=== PATIENT | female | born 1985 | race Caucasian/White ===

== ENCOUNTER 2023-02-05 02:06 | Day surgery (SDC) | payer BC, SELFPAY ==
[2023-01-14 15:52] VITALS: BMI 27.3
--- NOTE | 2023-01-14 15:57 | PC.NURSE ---
Addendum entered by Radha Gonzalez RN 01/29/23 14:36: Spoke with patient, no new medical conditions or medications from time of first pre-op interview. Instructed patient on new arrival time of 1200 on 02/05/23 with a planned procedure time of 1400. Original Note: Report to the Outpatient Waiting Room, entrance under the green pavilion located off [facility], at time 1100 on date 01/22/23. Planned Procedure Time: 1300. Time changes happen often and if your time is changed the preop area will call you the afternoon before. - You and your visitor will be asked to self-screen and do not enter if you have any COVID symptoms. - A mask is optional within the hospital at this time. Patients may have clear liquids (water, carbonated beverages, clear teas, apple juice) until 3 hours prior to surgery with a maximum of 20 ounces. - No food from midnight until time of surgery Take the following medications with a SIP of water the morning of surgery: DULOXETINE, INHALERS DO NOT STOP ANY OF YOUR OTHER PRESCRIPTION MEDICATIONS PRIOR TO SURGERY ?EXCEPT THE FOLLOWING Medications to discontinue per physician: VITAMINS Date to take last dose: 01/18/23 Please no make-up, nail korean, hairspray, perfume, deodorant, or body powder the day of surgery. No jewelry (including any body piercings) or valuables the day of surgery, leave them at home. Please take a shower or bath the night before, or the morning of, surgery with an antibacterial soap. Wear comfortable, loose fitting clothing. - Jewelry must be removed prior to entering the operating room. Rings and piercings that are not removed may be cut off. - The hospital will not accept responsibility for valuables. - Please leave all valuables, including medications, at home the day of surgery. If you are going home after surgery, a licensed pile driver engineer must drive you home. - NO public transportation without another adult if you receive anesthesia. - We recommend that an adult stay with you for 24 hours following discharge. - We also recommend that you do not drive, make important decision, drink alcoholic beverages, or take any drugs that were not prescribed by your health care provider for at least 24 hours after your discharge time. Follow any additional instructions given to you from your surgeon. If you or anyone in your household have experienced Covid symptoms in the past week, please notify your surgeon or the nurse liaison at the phone number below for possible testing. Telephone instructions given to PT - JULIO C MITCHELL and asked if any additional questions and then verbalized understanding. Patient advised to call surgeon office or pre surgery nurse liaison [phone] if any additional questions.
--- NOTE | 2023-01-21 14:30 | WPDANESEPPF ---
Anes - Initial Pre Proc Eval Procedure: Operation Date: 01/22/23 13:00 Proposed Procedures p Hysteroscopy, Dilation and Curettage, Roberta Endometrial Ablation - Rolan Aaron MD Date/Time: 01/21/23 14:30 Surgeon: Rolan Aaron MD Pre Op Diagnosis: irreg bleeding Patient Data Age: 37 Gender: F Height: 1.7 m Weight: 79.4 kg Allergies Allergy/AdvReac Type Severity Reaction Status Date / Time Penicillins Allergy Intermediate HIVES Verified 01/14/23 15:49 Home Medications Medication Instructions Recorded Confirmed Type albuterol sulfate 90 mcg/actuation 2 puff inhalation QID PRN 01/14/23 01/14/23 History aerosol inhaler Bronchospasm duloxetine 60 mg capsule,delayed 60 mg PO DAILY 01/14/23 01/14/23 History release ergocalciferol (vitamin D2) 1,250 1,250 mcg PO WEEKLY 01/14/23 01/14/23 History mcg (50,000 unit) capsule (Vitamin D2) famotidine 20 mg tablet 20 mg PO MONTHLY 01/14/23 01/14/23 History fluticasone furoate 100 1 inh inhalation DAILY 01/14/23 01/14/23 History mcg-vilanterol 25 mcg/dose inhalation powder (Breo Ellipta) montelukast 10 mg tablet 10 mg PO DAILY 01/14/23 01/14/23 History omeprazole 20 mg tablet,delayed 20 mg PO DAILY 01/14/23 01/14/23 History release Results Review: All pre-operative results and documents have been reviewed as part of the pre-operative evaluation. [facility] Past Medical History Medical History (Updated 01/21/23 @ 14:32 by Mckinley Hansen MD) Asthma Chronic GERD Fibromyalgia Overweight (BMI 25.0-29.9) Social History Social History Smoking status: Never smoker Alcohol intake: current Alcohol use details: 2/MONTH Substance use: never Substance use type: does not use Living arrangements: with family Spiritual care concerns: No Anes - Eval Final PreProcedure Day of Procedure 01/21/23 14:30 Patient weight: overweight Heart: regular rate and rhythm Lungs: clear to auscultation and normal air movement Airway: Mallampati scale class II Neurological: alert and oriented Last oral intake: >/= 8 hours ASA classification: II Emergent: no Anesthetic plan: proceed Anesthesia type and monitoring: general GIVS and LMA Results Review: All pre-operative results and documents have been reviewed as part of the pre-operative evaluation. Informed Consent: The patient's anesthetic plan and its attendant risks and benefits were discussed with the patient/family/POA. Questions were solicited and answers provided to the satisfaction of the patient/family/POA.
--- NOTE | 2023-02-05 09:29 | WPDANESEPPF ---
Anes - Initial Pre Proc Eval Procedure: Operation Date: 02/05/23 14:00 Proposed Procedures p Hysteroscopy, Dilation and Curettage, Roberta Endometrial Ablation - Rolan Aaron MD Date/Time: 02/05/23 09:29 Surgeon: Rolan Aaron MD Pre Op Diagnosis: irreg bleeding Patient Data Age: 37 Gender: F Height: 1.7 m Weight: 79.4 kg Allergies Allergy/AdvReac Type Severity Reaction Status Date / Time Penicillins Allergy Intermediate HIVES Verified 02/05/23 11:58 Home Medications Medication Instructions Recorded Confirmed Type albuterol sulfate 90 mcg/actuation 2 puff inhalation QID PRN 01/14/23 01/14/23 History aerosol inhaler Bronchospasm duloxetine 60 mg capsule,delayed 60 mg PO DAILY 01/14/23 01/14/23 History release ergocalciferol (vitamin D2) 1,250 1,250 mcg PO WEEKLY 01/14/23 01/14/23 History mcg (50,000 unit) capsule (Vitamin D2) famotidine 20 mg tablet 20 mg PO MONTHLY 01/14/23 01/14/23 History fluticasone furoate 100 1 inh inhalation DAILY 01/14/23 01/14/23 History mcg-vilanterol 25 mcg/dose inhalation powder (Breo Ellipta) montelukast 10 mg tablet 10 mg PO DAILY 01/14/23 01/14/23 History omeprazole 20 mg tablet,delayed 20 mg PO DAILY 01/14/23 01/14/23 History release Patient hx anesthesia problems: none Family hx anesthesia problems: none Results Review: All pre-operative results and documents have been reviewed as part of the pre-operative evaluation. [facility] Past Medical History Medical History (Updated 01/21/23 @ 14:32 by Mckinley Hansen MD) Asthma Chronic GERD Fibromyalgia Overweight (BMI 25.0-29.9) Social History Social History Smoking status: Never smoker Alcohol intake: current Alcohol use details: 2/MONTH Substance use: never Substance use type: does not use Living arrangements: with family Spiritual care concerns: No Anes - Eval Final PreProcedure Day of Procedure 02/05/23 09:29 Patient weight: overweight Heart: regular rate and rhythm Lungs: clear to auscultation Airway: Mallampati scale class II Neurological: alert and oriented Last oral intake: >/= 8 hours ASA classification: II Emergent: no Anesthetic plan: proceed Anesthesia type and monitoring: general GIVS and standard monitoring Results Review: All pre-operative results and documents have been reviewed as part of the pre-operative evaluation. Informed Consent: The patient's anesthetic plan and its attendant risks and benefits were discussed with the patient/family/POA. Questions were solicited and answers provided to the satisfaction of the patient/family/POA.
[2023-02-05] MEDS: ACETAMINOPHEN 500 MG TABLET 1000 MG PO (12:03)
[2023-02-05] MEDS: LACTATED RINGERS 1,000 ML 30 ML IV CONT ×3 (12:27→14:55)
[2023-02-05 12:32] VITALS: BP 111/63; PULSE 78; RESP 16; TEMP 37.3; O2SAT 99
--- NOTE | 2023-02-05 13:17 | PM.IMHP ---
H&P: HPI History of Present Illness Date/Time: 02/05/23 13:17 Chief Complaint: Heavy bleeding Narrative: 37 y/o with heavy menses, desiring surgical management. Her has had a vasectomy. Review of Systems Review of Systems: All systems reviewed & are unremarkable except as noted in HPI and below PMFSH Past Medical History Medical History (Updated 02/05/23 @ 13:18 by Rolan Aaron MD) Asthma Chronic GERD Fibromyalgia Overweight (BMI 25.0-29.9) Social History Social History Smoking status: Never smoker Alcohol intake: current Alcohol use details: 2/MONTH Substance use: never Substance use type: does not use Living arrangements: with family Spiritual care concerns: No Meds Home Medications and Allergies Home Medications Medication Instructions Recorded Confirmed Type albuterol sulfate 90 mcg/actuation 2 puff inhalation QID PRN 01/14/23 01/14/23 History aerosol inhaler Bronchospasm duloxetine 60 mg capsule,delayed 60 mg PO DAILY 01/14/23 01/14/23 History release ergocalciferol (vitamin D2) 1,250 1,250 mcg PO WEEKLY 01/14/23 01/14/23 History mcg (50,000 unit) capsule (Vitamin D2) famotidine 20 mg tablet 20 mg PO MONTHLY 01/14/23 01/14/23 History fluticasone furoate 100 1 inh inhalation DAILY 01/14/23 01/14/23 History mcg-vilanterol 25 mcg/dose inhalation powder (Breo Ellipta) montelukast 10 mg tablet 10 mg PO DAILY 01/14/23 01/14/23 History omeprazole 20 mg tablet,delayed 20 mg PO DAILY 01/14/23 01/14/23 History release Allergies Allergy/AdvReac Type Severity Reaction Status Date / Time Penicillins Allergy Intermediate HIVES Verified 02/05/23 11:58 Vital Signs Vital Signs - 24 hr 02/05/23 12:32 Temperature 37.3 C Pulse Rate 78 Respiratory Rate 16 Blood Pressure 111/63 Pulse Oximetry 99 Oxygen Delivery Room Air Exam Const: Orientation/consciousness: patient oriented x3 Other: Well-developed, well-nourished female in no acute distress. Neck: Thyroid: thyroid normal Lymphatic: no lymphadenopathy noted (in neck, axilla or inguinal nodes) Resp: Effort & Inspection: normal respiratory effort Auscultation: clear to auscultation bilaterally Cardio: Rate: regular rate Rhythm: regular rhythm Heart sounds: S1 normal heart sound present and S2 normal heart sound present GI: Other: ABD: Soft, nontender, nondistended. No guarding or rebound tenderness. No hepatosplenomegaly. : General: Yes no CVA tenderness Other: External genitalia: normal female hair distribution, without lesion. Urethral meatus: no lesion, non prolapsed. Bladder: no mass, nontender Vagina: well-estrogenized, without lesion or discharge. No cystocele or rectocele. Cervix: no lesion or discharge. Uterus: small, anteverted, freely mobile, nontender Adnexa: no mass or tenderness. Anus/perineum: no lesions, nontender Back/Spine/Pelvis: Back: no CVA tenderness Skin: General skin exam: normal color and no rashes or lesions noted Neuro: General: patient oriented x3 Extrem: Other: Extremities: nontender with no edema Psych: Mental Status: mental status grossly normal Affect: normal affect Assessment and Plan Assessment and plan (1) Menometrorrhagia: Code(s): N92.1 - Excessive and frequent menstruation with irregular cycle Status: Acute Assessment and Plan: A: Menometrorrhagia. P: We have reviewed medical as well as surgical approaches, and she prefers the latter. She does not desire any future childbearing. I have offered her a hysteroscopy, dilation and sharp curettage, and endometrial ablation. Call or return if temperature above 100.4? F, increased abdominal pain, increased vaginal bleeding or any new problems.
--- NOTE | 2023-02-05 13:19 | WPDHPUPDATE1 ---
History and Physical Update Update Date/Time: 02/05/23 13:19 History and Physical has been reviewed, including an updated exam of the patient. There are NO changes in the patient's condition. Risks, benefits, and alternatives have been discussed and questions answered. Patient agrees to proceed with procedure.
[2023-02-05] MEDS: LIDOCAINE 1% BUFFERED WITH 8.4% SODIUM BICARB 1 ML SYRINGE 10 ML INFILTRATE (14:08)
[2023-02-05] MEDS: KETOROLAC 30 MG/ML VIAL (*BKC) IV PUSH (14:14)
--- NOTE | 2023-02-05 14:20 | W.PM.PROC2 ---
Procedure Note - Detailed Date of Procedure 02/05/23 Pre-op Diagnosis Menometrorrhagia Post-op Diagnosis Same Procedure Performed Hysteroscopy Dilation and sharp curettage Endometrial curettings Surgeon Rolan Aaron MD Anesthesia MAC and Local (1% lidocaine) Findings Unremarkable endometrial cavity. Both tubal ostia seen. Description of Procedure The patient was taken to the operating room where she was prepared and draped in the usual sterile fashion in the dorsal lithotomy position. The bladder was drained with a red rubber catheter. A sterile speculum was placed into the vagina. The anterior lip of the cervix was grasped with single-tooth tenaculum. Ten mL of 1% lidocaine was administered in a paracervical block. The cervix was then gently dilated using Hegar dilators until an 8 mm dilator could be passed. Hysteroscopy was performed using sterile saline as a distention medium. Findings are as noted above. Sharp curettage was then performed, and endometrial curettings were collected on a Telfa pad and passed off to be sent to pathology. Finally, the the Roberta device was advanced and endometrial ablation commenced without difficulty. The device was withdrawn and a second look was taken using the hysteroscope. Excellent coverage of the endometrial cavity was noted. The tenaculum was removed. Hemostasis was excellent. Sponge, lap, needle and instrument counts were correct. The patient was awakened and taken to the recovery room in stable condition. I was present and scrubbed through the entire procedure. Estimated Blood Loss 5 Drains No Packing No Pathology Yes (Endometrial curettings) Complications None Condition Stable Disposition PACU
[2023-02-05 14:21] VITALS: BP 100/57; PULSE 75; RESP 16; O2SAT 99
[2023-02-05 14:30] VITALS: BP 108/70; PULSE 67; RESP 15; O2SAT 100
[2023-02-05 14:45] VITALS: BP 121/71; PULSE 67; RESP 13; O2SAT 100
[2023-02-05] MEDS: oxyCODONE HCL (*CRX) 5 MG TAB IR PO (15:02)
[2023-02-05 15:11] VITALS: BP 126/68; PULSE 62; RESP 16; O2SAT 100
== END 2023-02-05 15:18 | disposition home or self-care (01) ==
PROVIDERS: Visit Provider Obstetrics & Gynecology
PROC: 0U5B8ZZ Destruction of Endometrium, Via Natural or Artificial Opening Endoscopic (ICD-10-PCS; CPT 58563; principal; 2023-02-05 14:00)
DX: N92.1 Excessive and frequent menstruation with irregular cycle (principal); J45.909 Unspecified asthma, uncomplicated; M79.7 Fibromyalgia; K21.9 Gastro-esophageal reflux disease without esophagitis; Z79.51 Long term (current) use of inhaled steroids
CPT/HCPCS: 58558; 88305; A9270; J1885; J2250; J2405; J2704; J3010; J7120

== ENCOUNTER 2024-09-16 09:28 | Emergency (ER) | payer BC, SELFPAY ==
[2024-09-16 09:41] VITALS: BP 121/76; PULSE 87; RESP 16; TEMP 36.9; O2SAT 100
--- NOTE | 2024-09-16 09:54 | ED_ITS ---
HPI - URI/Sore Throat General Chief Complaint: Upper Respiratory Infection Stated Complaint: Cough,Fever Time Seen by Provider: 09/16/24 09:54 Source: patient Mode of arrival: ambulatory Limitations: no limitations History of Present Illness HPI Narrative: 39-year-old female presents with complaint of cough, chest congestion for 9 days. Reports over the last 3-4 days has had increasing cough, chest congestion, fever, fatigue and shortness of breath with exertion. Patient taking [id number] counter medications without relief of symptoms. Patient concerned for pneumonia. All systems reviewed and negative except as noted above. Related Data Home Medications ?Medication ?Instructions ?Recorded ?Confirmed ?Last Taken ?Type albuterol sulfate 90 mcg/actuation 2 puff inhalation QID PRN 01/14/23 09/16/24 Unknown History aerosol inhaler Bronchospasm ergocalciferol (vitamin D2) 1,250 1,250 mcg PO WEEKLY 01/14/23 09/16/24 Unknown History mcg (50,000 unit) capsule (Vitamin D2) famotidine 20 mg tablet 20 mg PO MONTHLY 01/14/23 09/16/24 Unknown History fluticasone furoate 100 1 inh inhalation DAILY 01/14/23 09/16/24 Unknown History mcg-vilanterol 25 mcg/dose inhalation powder (Breo Ellipta) montelukast 10 mg tablet 10 mg PO DAILY 01/14/23 09/16/24 Unknown History omeprazole 20 mg tablet,delayed 20 mg PO DAILY 01/14/23 09/16/24 Unknown History release dupilumab 300 mg/2 mL subcutaneous mg subcut 09/16/24 Unknown History pen injector (Dupixent) fluoxetine 40 mg capsule mg 09/16/24 Unknown History levocetirizine 5 mg tablet mg 09/16/24 Unknown History rimegepant 75 mg disintegrating mg 09/16/24 Unknown History tablet (Nurtec ODT) Allergies Allergy/AdvReac Type Severity Reaction Status Date / Time Penicillins Allergy Intermediate HIVES Verified 02/05/23 11:58 Review of Systems Review of Systems: CONSTITUTIONAL: Reports fever, chills, or sweats. EYES: Denies visual changes, redness, or discharge. ENT: Reports rhinorrhea, congestion. Denies sore throat, or otalgia. CARDIOVASCULAR: Denies chest pain, palpitations, or edema. RESPIRATORY: Reports cough and dyspnea with exertion. GASTROINTESTINAL: Denies abdominal pain, nausea, vomiting, or diarrhea. GENITOURINARY: Denies dysuria or hematuria. SKIN: Denies rash or itching. MUSCULOSKELETAL: Denies back pain, joint pain, or myalgia. NEUROLOGIC: Denies headache, numbness, or weakness. PSYCHIATRIC: Denies anxiety or depression. All other systems reviewed are negative, except as documented in HPI. [facility] Past Medical History Medical History (Updated 09/16/24 @ 09:58 by Carmelina Larkin NP) Overweight (BMI 25.0-29.9) Fibromyalgia Chronic GERD Asthma Social History Social History Smoking status: Never smoker Alcohol intake: current Alcohol use details: 2/MONTH Substance use: never Substance use type: does not use Living arrangements: with family Spiritual care concerns: No Comments At time of signature, agree with nursing past medical, surgical, social and family history. There is no relevant family history pertinent to the presenting complaint. Exam Narrative: GENERAL: This is a well-nourished, well-developed patient, ill-appearing but in no acute distress HEAD: normocephalic, atraumatic. EYES: PERRL. Sclera clear/white. Vision is grossly intact. EARS: External ears normal, auditory canals clear and without drainage, TMs normal without perforation. Hearing grossly intact. NOSE: External nose normal with no obvious nasal discharge, nares without redness, no rhinorrhea. THROAT: Mucous membranes moist, posterior pharynx clear. NECK: Neck supple, non-tender without lymphadenopathy, masses or thyromegaly. CARDIOVASCULAR: Regular rate and rhythm without murmurs, gallops, or rubs. RESPIRATORY: Crackles to right lower lung field otherwise clear. Breath sounds equal bilaterally. No wheezes, rales, or rhonchi. SKIN: warm, Dry, intact with no suspicious lesions or rash, good texture and turgor. NEURO: awake, alert, and oriented to person, place and time. There were no obvious focal neurologic abnormalities. EXTREMITIES: No joint tenderness, effusion, or edema noted. Course Course Level of Care: Express Care Visit Vital Signs Vital signs: Vital Signs Temperature 36.9 C 09/16/24 09:41 Pulse Rate 87 09/16/24 09:41 Respiratory Rate 16 09/16/24 09:41 Blood Pressure 121/76 09/16/24 09:41 Pulse Oximetry 100 09/16/24 09:41 Temperature 36.9 C 09/16/24 09:41 Pulse Rate 87 09/16/24 09:41 Respiratory Rate 16 09/16/24 09:41 Blood Pressure 121/76 09/16/24 09:41 Pulse Oximetry 100 09/16/24 09:41 Reviewed MDM - URI/Sore Throat MDM Narrative Medical decision making narrative: Negative COVID and influenza test. Crackles to right lower lung field. Will treat patient for pneumonia due to lung sounds, duration of symptoms. Patient is alert, nontoxic. Hemodynamically stable. Patient is aware of diagnosis, understands and agrees to treatment plan. Anticipatory guidance given. Patient agrees to follow-up as directed and is aware of reasons to seek care at the emergency department. Portions of this record may have been created with voice recognition software Differential Diagnosis Differential diagnosis: Likely upper respiratory infection, sinusitis, viral infection, bronchitis, influenza and other (Pneumonia, COVID-19) Lab Data Labs: Lab Results 09/16/24 Range/Units 09:54 POC Influenza A Ag Negative (Negative) POC Influenza B Ag Negative (Negative) POC SARS CoV-2 Ag Negative (Negative) Discharge Plan Discharge Clinical Impression: Pneumonia Patient Disposition: Home, Self-Care Condition: Stable Instructions: Antibiotic Form, Pneumonia (ED) Additional Instructions: Your COVID and influenza test was negative today. Take medications as prescribed. Take Tylenol or ibuprofen every 6-8 hours as needed for pain and fever. Drink at least 64 oz of water a day. Place cool mist humidifier in bedroom where you sleep. Drink hot tea with honey to treat cough. Follow-up with your primary care physician if symptoms are not improving. Patient Language: Nepali Prescriptions: New doxycycline hyclate 100 mg capsule 100 mg PO BID 7 Days Qty: 14 0RF benzonatate 200 mg capsule 200 mg PO TID PRN (Reason: cough) Qty: 20 0RF No Action fluoxetine 40 mg capsule levocetirizine 5 mg tablet Nurtec ODT 75 mg tablet,disintegrating Dupixent Pen 300 mg/2 mL pen injector SUBCUT famotidine 20 mg Tablet 20 mg PO MONTHLY montelukast 10 mg Tablet 10 mg PO DAILY ergocalciferol (vitamin D2) [Vitamin D2] 1,250 mcg (50,000 unit) Capsule 1,250 mcg PO WEEKLY Patient Comments: PT TAKES ON FRIDAY albuterol sulfate 90 mcg/actuation Hfa Aerosol Inhaler 2 puff INHALATION QID PRN (Reason: Bronchospasm) omeprazole 20 mg Tablet,Delayed Release (Dr/Ec) 20 mg PO DAILY fluticasone furoate-vilanterol [Breo Ellipta] 100-25 mcg/dose Blister With Device 1 inh INHALATION DAILY Follow-up/Referrals: UNKNOWN,DOCTOR [Primary Care Provider] - Time of Disposition: 09:59
[2024-09-16 09:59] LABS: EDCOVIDSCREEN Negative (Negative); EDINFLUASCREEN Negative (Negative); EDINFLUBSCREEN Negative (Negative)
== END 2024-09-16 10:06 | disposition home or self-care (01) ==
PROVIDERS: Emergency Provider Nurse Practitioner Family
DX: J18.9 Pneumonia, unspecified organism (principal); Z20.822 Contact with and (suspected) exposure to COVID-19
CPT/HCPCS: 87426; 87804; 99213; G0463